=== PATIENT | female | born 1935 | race Caucasian/White ===

== ENCOUNTER → 2017-10-10 | Outpatient (CLI) | payer MEDICARE ==
[~2017-10-10] MED LIST: ACET-1966 PO; ALEN35TA3 PO; CARB-124 PO; DONE5TAB74 PO; IBUP200C71 PO; MEMA5TAB14 PO; METO25TA23 PO; OMEP-137 PO
== END ==
LOC: ZZSPRING 01:46
PROVIDERS: ATTEND Family Medicine
DX: F03.90 Unspecified dementia, unspecified severity, without behavioral disturbance, psychotic disturbance, mood disturbance, and anxiety (principal); I10 Essential (primary) hypertension; K21.9 Gastro-esophageal reflux disease without esophagitis; G20 Parkinson's disease; M81.0 Age-related osteoporosis without current pathological fracture; Z87.81 Personal history of (healed) traumatic fracture
CPT/HCPCS: 36415; 82040; 82247; 82306; 82310; 82374; 82435; 82565; 82607; 82947; 84075; 84132; 84155; 84295; 84443; 84450; 84460; 84520; 85027

== ENCOUNTER 2018-01-03 20:24 | Emergency (ER) | payer MEDICARE ==
[~2018-01-03 20:24] MED LIST changes: +CALC500T6 PO; +CHOL200021 PO; +IBUP-136 PO; -IBUP200C71 PO; +OMEP-125 PO
[2018-01-03] MEDS ORDERED: GUAI1CAP3 (20:56)
[2018-01-03] MEDS ORDERED: ASPI-757 PO (20:56)
--- NOTE | 2018-01-03 20:58 | ER Report ---
History and Physical Time Seen By MD: 20:20 Hx. of Stated Complaint: pt "needs disempacted" HPI/ROS Chief Complaint: "fecal impaction" HPI: 82-year-old patient presents to the Emergency Department with her daughter. The patient's daughter is the primary historian. The patient is currently living at [facility]. The patient's daughter reports she received a call from the [facility] nurse in which she was notified that the patient was constituted and the problem was "out of their scope." The patient does not report any pain at this time. The daughter reports that while out to dinner this evening the patient did have a decreased appetite. While changing the patient's depends the daughter noticed a smear of stool. The senior living has tried prune juice and Miralax with no improvement in constipation. ROS: Constitutional: denies fever, chills, or night sweats HEENT: denies headaches, changes in vision, sore throat or cough Respiratory: denies difficulty breathing GI: reports constipation, denies nausea and vomiting : denies changes in urination Allergies: Coded Allergies: Tgchzxv-Jwa-Wjk Reductase Inhibitor (Verified Allergy, Unknown, 10/05/17) Sulfa (Sulfonamide Antibiotics) (Verified Allergy, Unknown, 10/05/17) codeine (Verified Allergy, Unknown, 10/05/17) Home Meds Active Scripts Calcium Carbonate (CALCIUM) 500 Mg Tablet, 1 TAB PO BID for 90 Days, #180 TAB 4 Refills Prov:JAKE MARTIN MD 12/12/17 Cholecalciferol (Vitamin D3) (VITAMIN D) 2,000 Unit Capsule, 1 CAP PO DAILY for 90 Days, #90 CAPSULE 4 Refills Prov:JAKE MARTIN MD 12/12/17 Omeprazole (OMEPRAZOLE) 20 Mg Capsule.dr, 1 CAP PO QODAY for 90 Days, #45 CAP 4 Refills Prov:JAKE MARTIN MD 12/12/17 Carbidopa/Levodopa (CARBIDOPA-LEVO ER 25-100 TAB) 1 Each Tablet.er, 1 TAB PO TID for 90 Days, #270 TAB 4 Refills Prov:JAKE MARTIN MD 12/12/17 Reported Medications Guaifenesin/Dextromethorphan (Robitussin Vldcv-Sttrh-Rnpg Dm) 1 Each Capsule 01/03/18 Aspirin (ASPIRIN) 325 Mg Tablet, 325 MG PO QDAY, TAB 01/03/18 Acetaminophen (TYLENOL) 325 Mg Tablet, 1-2 TAB PO Q4H Y for PAIN, TAB 10/05/17 Alendronate Sodium (ALENDRONATE SODIUM) 35 Mg Tablet, 1 TAB PO QWEEK, TAB Weekly on Fridays10/05/17 Past Medical/Surgical History Alzheimer's Disease, Parkinson's Disease Social History of Lives at [facility] Hx Substance Use Disorder: No Hx Alcohol Use: No Constitutional Vital Sign - Last 24 Hours 01/03/18 01/03/18 01/03/18 01/03/18 20:24 20:30 20:31 20:54 Temp 97.9 Pulse ??? 91 ??? Resp 16 B/P (MAP) 158/87 (110) 158/87 Pulse Ox 93 O2 Delivery Room Air 01/03/18 01/03/18 01/03/18 01/03/18 21:00 21:24 21:30 21:39 Pulse 81 81 B/P (MAP) ???/??? (1665) 139/87 (104) Pulse Ox 89 94 01/03/18 01/03/18 01/03/18 01/03/18 21:54 22:00 22:09 22:15 Pulse ? B/P (MAP) ???/??? (1665) 169/90 (116) 01/03/18 01/03/18 01/03/18 01/03/18 22:20 22:30 22:35 22:50 Pulse 85 84 84 B/P (MAP) 147/88 (107) Pulse Ox 93 92 91 01/03/18 01/03/18 23:00 23:05 Pulse ??? B/P (MAP) 151/83 (105) Physical Exam Physical Examination: General: 82-year-old female in no acute distress, altered LOC HEENT: normocephalic, pupils round and reactive to light and accommodation, pharynx without erythema Respiratory: BL equal respiratory excursion, CTA BL CV: Clear S1 S2, no murmurs GI: hyperactive BS x 4, abdomen with distention, nontender, digital rectal exam consistent with fecal impaction Differential Diagnoses: constipation, fecal impaction Medical Decision Making EKG/Imaging Imaging KUB SINGLE VIEW ABDOMEN HISTORY: fecal impaction COMPARISON: None FINDINGS: Lower chest: Negative Abdomen: No free intraperitoneal air. There is a nonobstructive bowel gas pattern. There are no abnormal calcifications. Extensive thoracolumbar-sacral fusion hardware. Right hip arthroplasty. Mild degenerative changes at the left hip. Large amount of colonic stool. IMPRESSION: 1. Large amount of colonic stool. No obstructive features. Report Dictated By: Ivan Rich MD at 01/03/2018 11:01 PM Report E-Signed By: Ivan Rich MD at 01/03/2018 11:02 PM ED Course/Re-evaluation ED Course 82-year-old patient presents to the emergency department with her daughter after referral from [facility]. The patient is not experiencing pain however, the nurse at [facility] reported to the daughter that the patient's condition was out of their scope. History and physical examination were obtained. Differential diagnoses were considered and discussed with the patient and family. On digital rectal exam fecal impaction was evident. A moderate amount of stool was digitally removed and and enema was also administered. KUB indicates significant constipation. The patient will be sent back to [facility] for home care and encouraged to take Magnesium Citrate in the morning. The patient and family has been encouraged to continue MiraLax daily. The family has been encouraged to return to the emergency department if the patient's condition worsens. Decision to Disposition Date: Jan 03, 2018 Decision to Disposition Time: 22:56 Depart Departure Latest Vital Signs Vital Signs Date Time Temp Pulse Resp B/P (MAP) Pulse Ox O2 Delivery O2 Flow Rate FiO2 01/03/18 23:05 ??? 01/03/18 23:00 151/83 (105) 01/03/18 22:50 91 01/03/18 20:31 97.9 16 Room Air Impression: Primary Impression: Fecal impaction in rectum Condition: Improved Disposition: HOME OR SELF-CARE Referrals: JAKE MARTIN MD (PCP) Patient Instructions: Fecal Impaction (ED) Additional Instructions: Return to the emergency department if your condition worsens. Take magnesium sulfate in the morning and then continue taking MiraLax daily. Increase water intake and consider taking in more leafy green vegetables. Ensure regular toileting. Follow up with your primary care provider within the week to further discuss potential causes of the constipation. JAYY ALEMANP Jan 03, 2018 20:58
[2018-01-03] MEDS ORDERED: MAGNESIUM CITRATE 300 ML BTL PO ONE (22:55)
[2018-01-03 23:00] VITALS: BP 151/83
--- NOTE | 2018-01-03 23:07 | RADIOLOGY IMAGING REPORT ---
FACILITY: [facility] - [place], [place] PATIENT NAME: Altagracia Christensen : 1935 MR: [id number] V: [id number] EXAM DATE: ORDERING PHYSICIAN: JAYY ALEMAN TECHNOLOGIST: Location: [facility] Patient: Altagracia Christensen : 1935 Visit/Account:[id number] Date of Sevice: 01/03/2018 KUB SINGLE VIEW ABDOMEN HISTORY: fecal impaction COMPARISON: None FINDINGS: Lower chest: Negative Abdomen: No free intraperitoneal air. There is a nonobstructive bowel gas pattern. There are no abn ormal calcifications. Extensive thoracolumbar-sacral fusion hardware. Right hip arthroplasty. Mild de generative changes at the left hip. Large amount of colonic stool. IMPRESSION: 1. Large amount of colonic stool. No obstructive features. Report Dictated By: Ivan Rich MD at 01/03/2018 11:01 PM Report E-Signed By: Ivan Rich MD at 01/03/2018 11:02 PM WSN:[id number]
== END 2018-01-03 23:00 | disposition home or self-care (01) ==
LOC: ER 20:41
DX: K56.41 Fecal impaction (principal)
CPT/HCPCS: 74018; 99283; A9270

== ENCOUNTER → 2018-08-15 | Outpatient (CLI) | payer MEDICARE ==
[~2018-08-15] MED LIST changes: +ASPI-757 PO; +GUAI1CAP3 PO; +POLY17PO25 PO
--- NOTE | 2018-08-15 16:27 | RADIOLOGY IMAGING REPORT ---
FACILITY: [facility] - [place] PATIENT NAME: Altagracia Christensen : 1935 MR: [id number] V: [id number] EXAM DATE: ORDERING PHYSICIAN: JAKE MARTIN TECHNOLOGIST: Location: [facility] Patient: Altagracia Christensen : 1935 Visit/Account:[id number] Date of Sevice: 08/15/2018 EXAMINATION: Right Lower Extremity Venous Ultrasound HISTORY: Leg edema. TECHNIQUE: Ultrasound evaluation of the right lower extremity veins was performed with color and spe ctral Doppler and compression views. COMPARISON: None. FINDINGS: The right common femoral, femoral, proximal deep femoral, popliteal, and segmentally visualized deep calf veins are patent and compressible, without evidence of intraluminal thrombus. The visualized up per greater saphenous vein is patent. IMPRESSION: Normal exam. No evidence of DVT in the right leg. Report Dictated By: Heber Driscoll MD at 08/15/2018 4:08 PM Report E-Signed By: Heber Driscoll MD at 08/15/2018 4:10 PM WSN:[id number]
== END ==
LOC: US 14:53
PROVIDERS: ATTEND Family Medicine
DX: R60.0 Localized edema (principal)

== ENCOUNTER → 2018-08-28 | Outpatient (CLI) | payer MEDICARE ==
[~2018-08-28] MED LIST changes: +CALC1TAB24 PO; +DEXT1DRO16 OP; +LOPE2CAP15 PO; +MAG-65 PO; +MOM PO; +RANI-366 PO
== END ==
LOC: ZZSPRING 02:57
PROVIDERS: ATTEND Family Medicine
DX: R60.0 Localized edema (principal); I10 Essential (primary) hypertension
CPT/HCPCS: 36415; 82310; 82374; 82435; 82565; 82947; 84132; 84295; 84520; 85027

== ENCOUNTER 2018-12-07 03:51 | Inpatient (IN) | payer MEDICARE ==
[~2018-12-07] VITALS: Ht 165.1 cm; Wt 64.4 kg
[~2018-12-07 03:51] MED LIST changes: -POLY17PO25 ASDIRECTED
[2018-12-07] MEDS ORDERED: NS(*) 0.9% 1000 ML BAG 1,000 ML IV ONE (03:58)
[2018-12-07] MEDS ORDERED: fentaNYL CITR 100 MCG/2 ML AMP IVP ONE ×3 (04:00→04:15)
[2018-12-07] MEDS ORDERED: ONDANSETRON 4 MG/2 ML VIAL IVP ONE (04:00)
--- NOTE | 2018-12-07 04:04 | ER Report ---
History and Physical Time Seen By MD: 04:00 Hx. of Stated Complaint: fall, left hip pain HPI/ROS CHIEF COMPLAINT: Elderly fall, left hip pain HISTORY OF PRESENT ILLNESS: 83-year-old female from a dementia care [facility] after a fall. She's complaining of left hip and pelvis pain. Patient denies head injury, but she has dementia. Patient moaning in pain and discomfort. EMS placed a pelvic binder on her. See halfway paperwork for other specific details. There is a DO NOT RESUSCITATE. REVIEW OF SYSTEMS: Respiratory: No cough, no dyspnea. Cardiovascular: No chest pain, no palpitations. Gastrointestinal: No vomiting, no abdominal pain. Musculoskeletal: No back pain. Allergies: Coded Allergies: Zjgbcbc-Wex-Qmh Reductase Inhibitor (Verified Allergy, Unknown, 12/07/18) Sulfa (Sulfonamide Antibiotics) (Verified Allergy, Unknown, 12/07/18) codeine (Verified Allergy, Unknown, 12/07/18) Home Meds Active Scripts Folic Acid (FOLIC ACID) 1 Mg Tablet, 1 TAB PO QDAY for 90 Days, #90 TAB 1 Refill Prov:JAKE MARTIN MD 11/13/18 Cyanocobalamin (Vitamin B-12) (VITAMIN B-12) 1,000 Mcg Tablet, 1 TAB PO DAILY for 90 Days, #90 TAB 4 Refills Prov:JAKE MARTIN MD 11/13/18 Alendronate Sodium (ALENDRONATE SODIUM) 35 Mg Tablet, 1 TAB PO QWEEKF for 90 Days, #12 TAB 1 Refill Weekly on Fridays Prov:JAKE MARTIN MD 09/25/18 Ranitidine Hcl (ZANTAC) 150 Mg Tablet, 1 TAB PO HS for 90 Days, #90 TAB 1 Refill Prov:JAKE MARTIN MD 09/25/18 Calcium Carbonate (CALCIUM) 500 Mg Tablet, 1 TAB PO BID for 90 Days, #180 TAB 4 Refills Prov:JAKE MARTIN MD 12/12/17 Cholecalciferol (Vitamin D3) (VITAMIN D) 2,000 Unit Capsule, 1 CAP PO DAILY for 90 Days, #90 CAPSULE 4 Refills Prov:JAKE MARTIN MD 12/12/17 Carbidopa/Levodopa (CARBIDOPA-LEVO ER 25-100 TAB) 1 Each Tablet.er, 1 TAB PO TID for 90 Days, #270 TAB 4 Refills Prov:JAKE MARTIN MD 12/12/17 Reported Medications Melatonin/Pyridoxine (MELATONIN 5 MG TABLET) 1 Each Tablet, 1 TAB PO HS 12/07/18 Polyethylene Glycol 3350 (MIRALAX) 17 Gm Powd.pack, 1 PACK ASDIRECTED 3XW, PKT TAKES MON, WED AND FRI; HOLD FOR LOOSE STOOLS 12/07/18 Dextran 70/Hypromellose/Pf (ARTIFICIAL TEARS DROPS) 1 Each Droperette, 1 GTT OP PRN 08/22/18 Calcium Carbonate/Mag Hydrox (ANTACID CHEWABLE TABLET) 1 Each Tab.chew, 2 TAB.CHEW PO Q2H PRN for prn, TAB.CHEW 08/22/18 Mag Hydrox/Aluminum Hyd/Simeth (Maalox Advanced Suspension) 200 Mg-200 Mg-20 Mg/5 Ml Oral.susp, 15 ML PO Q4H PRN for prn 08/22/18 Acetaminophen (TYLENOL) 325 Mg Tablet, 1-2 TAB PO Q4H PRN for PAIN, TAB 10/05/17 Discontinued Reported Medications Magnesium Hydroxide (MILK OF MAGNESIA) 400 Mg/5 Ml Oral.susp, 15-30 ML PO BID PRN for CONSTIPATION, BOTTLE 08/22/18 Discontinued Scripts Melatonin/Pyridoxine (MELATONIN 5 MG TABLET) 1 Each Tablet, 1 TAB PO QHS, #90 TAB 4 Refills Prov:JAKE MARTIN MD 11/13/18 Polyethylene Glycol 3350 (MIRALAX) 17 Gm Powd.pack, 17 GM PO DAILY for 30 Days, #30 PKT 11 Refills Prov:JAKE MARTIN MD 01/09/18 Past Medical/Surgical History Past Medical History Reviewed: Yes Neurologic: Reports hx of: dementia parkinson's disease Gastrointestinal: Reports hx of: GERD peptic ulcer disease (with perforation) Musculoskeletal: Reports hx of: fractures (right hip) Musculoskeletal: Reports hx of: spinal surgery total joint replacement (right hip) Social history: Marital Status: Living Situation: assisted living (memory care) Household Members: alone Reviewed Nurses Notes: Yes Old Medical Records Reviewed: Yes Hx Substance Use Disorder: No Hx Alcohol Use: No Constitutional Vital Sign - Last 24 Hours 12/07/18 12/07/18 12/07/18 12/07/18 03:57 03:59 04:00 04:06 Pulse 107 109 Resp 16 B/P (MAP) 197/119 (145) 197/119 191/124 (146) Pulse Ox 94 96 O2 Delivery Room Air 12/07/18 12/07/18 12/07/18 12/07/18 04:21 04:30 04:36 04:50 Pulse 104 100 B/P (MAP) 193/110 (137) Pulse Ox 94 92 O2 Flow Rate 2.0 12/07/18 12/07/18 12/07/18 12/07/18 04:51 05:00 05:11 05:16 Pulse 93 97 96 B/P (MAP) 191/103 (132) Pulse Ox 97 95 93 Physical Exam Vital signs stable, afebrile, pulse ox normal General Appearance: The patient is alert, has no immediate need for airway pr otection and no current signs of toxicity. Moderate distress, dementia, palpation of the head and neck reveal no tenderness or trauma HEENT: Pupils equal and round no injection. Oropharynx without dental trauma Respiratory: Chest is non tender, lungs are clear to auscultation. No chest wall tenderness Cardiac: regular rate and rhythm Gastrointestinal: Abdomen is soft and non tender, no masses, bowel sounds normal. Musculoskeletal: Neck: Neck is supple and non tender. Extremities have full range of motion and are non tender. There is tenderness on compression of the left hip. Both lower extremities are neurovascularly intact. There is a lot of bruising noted on the left elbow, some old and some new Skin: No rashes or lesions. DIFFERENTIAL DIAGNOSIS: After history and physical exam differential diagnosis was considered for fall in the elderly including but not limited to intracranial injury, long bone and pelvic bone fracture, spinal injury, and intrathoracic injury. Medical Decision Making Data Points Result Diagram: 12/07/18 0351 12/07/18 0351 Laboratory Hematology Test 12/07/18 03:51 Red Blood Count 5.12 M/uL (4.17-5.56) Mean Corpuscular Volume 88.1 fL (80.0-96.0) Mean Corpuscular Hemoglobin 29.3 pg (26.0-33.0) Mean Corpuscular Hemoglobin Concent 33.3 g/dL (32.0-36.0) Red Cell Distribution Width 14.8 % (11.5-14.5) Mean Platelet Volume 11.4 fL (7.2-11.1) Neutrophils (%) (Auto) 64.4 % (39.4-72.5) Lymphocytes (%) (Auto) 23.2 % (17.6-49.6) Monocytes (%) (Auto) 11.4 % (4.1-12.4) Eosinophils (%) (Auto) 0.7 % (0.4-6.7) Basophils (%) (Auto) 0.3 % (0.3-1.4) Nucleated RBC Relative Count (auto) 0.0 /100WBC Neutrophils # (Auto) 4.4 K/uL (2.0-7.4) Lymphocytes # (Auto) 1.6 K/uL (1.3-3.6) Monocytes # (Auto) 0.8 K/uL (0.3-1.0) Eosinophils # (Auto) 0.0 K/uL (0.0-0.5) Basophils # (Auto) 0.0 K/uL (0.0-0.1) Nucleated RBC Absolute Count (auto) 0.00 K/uL Prothrombin Time 14.1 seconds (12.0-14.4) Prothromb Time International Ratio 1.08 Activated Partial Thromboplast Time 30 seconds (23-35) Sodium Level 140 mmol/L (137-145) Potassium Level 3.5 mmol/L (3.5-5.0) Chloride Level 105 mmol/L (98-107) Carbon Dioxide Level 25 mmol/L (22-31) Blood Urea Nitrogen 17 mg/dl (7-18) Creatinine 1.10 mg/dl (0.52-1.04) Glomerular Filtration Rate Calc 47.7 Random Glucose 125 mg/dl (75-110) Calcium Level 9.5 mg/dl (8.4-10.2) Total Bilirubin 0.9 mg/dl (0.2-1.3) Aspartate Amino Transf (AST/SGOT) 31 U/L (0-35) Alanine Aminotransferase (ALT/SGPT) 27 U/L (0-56) Alkaline Phosphatase 99 U/L (0-126) Total Protein 6.9 g/dl (6.3-8.2) Albumin 3.8 g/dl (3.5-5.0) Chemistry Test 12/07/18 03:51 White Blood Count 6.8 k/uL (4.5-11.0) Red Blood Count 5.12 M/uL (4.17-5.56) Hemoglobin 15.0 g/dL (12.0-16.0) Hematocrit 45.1 % (34.0-47.0) Mean Corpuscular Volume 88.1 fL (80.0-96.0) Mean Corpuscular Hemoglobin 29.3 pg (26.0-33.0) Mean Corpuscular Hemoglobin Concent 33.3 g/dL (32.0-36.0) Red Cell Distribution Width 14.8 % (11.5-14.5) Platelet Count 111 K/uL (150-450) Mean Platelet Volume 11.4 fL (7.2-11.1) Neutrophils (%) (Auto) 64.4 % (39.4-72.5) Lymphocytes (%) (Auto) 23.2 % (17.6-49.6) Monocytes (%) (Auto) 11.4 % (4.1-12.4) Eosinophils (%) (Auto) 0.7 % (0.4-6.7) Basophils (%) (Auto) 0.3 % (0.3-1.4) Nucleated RBC Relative Count (auto) 0.0 /100WBC Neutrophils # (Auto) 4.4 K/uL (2.0-7.4) Lymphocytes # (Auto) 1.6 K/uL (1.3-3.6) Monocytes # (Auto) 0.8 K/uL (0.3-1.0) Eosinophils # (Auto) 0.0 K/uL (0.0-0.5) Basophils # (Auto) 0.0 K/uL (0.0-0.1) Nucleated RBC Absolute Count (auto) 0.00 K/uL Prothrombin Time 14.1 seconds (12.0-14.4) Prothromb Time International Ratio 1.08 Activated Partial Thromboplast Time 30 seconds (23-35) Glomerular Filtration Rate Calc 47.7 Calcium Level 9.5 mg/dl (8.4-10.2) Total Bilirubin 0.9 mg/dl (0.2-1.3) Aspartate Amino Transf (AST/SGOT) 31 U/L (0-35) Alanine Aminotransferase (ALT/SGPT) 27 U/L (0-56) Alkaline Phosphatase 99 U/L (0-126) Total Protein 6.9 g/dl (6.3-8.2) Albumin 3.8 g/dl (3.5-5.0) Coagulation Test 12/07/18 03:51 Prothrombin Time 14.1 seconds Prothromb Time International Ratio 1.08 Activated Partial Thromboplast Time 30 seconds EKG/Imaging EKG Interpretation 12 lead EK, 22 Rhythm: Sinus tachycardia, rate 106 [place]: normal QRS: normal ST segments: normal, no evidence of ischemia or dysrhythmia, no old EKGs for comparison Imaging X-ray: Single view left hip was obtained. I viewed the images myself on the PACS system. My interpretation of the images is: Transcervical neck fracture of the left hip. The radiologist interpretation had no clinically significant variation from this interpretation. X-ray: Single view portable chest was obtained. I viewed the images myself on the PACS system. My interpretation of the images is: No infiltrate, no effusion, normal mediastinum. The radiologist interpretation had no clinically significant variation from this interpretation. ED Course/Re-evaluation Clinical Indication for ER IV: Hydration, IV Access ED Course 12/07/2018 5:01:[address] Monroy orthopedics surgery on-call, who accepts the patient for admission. 12/07/2018 5:16:[address] Bronson Moser-Toby hospitalist accepts the patient for admission for medical service. Decision to Disposition Date: Dec 07, 2018 Decision to Disposition Time: 04:21 Depart Departure Latest Vital Signs Vital Signs Date Time Temp Pulse Resp B/P (MAP) Pulse Ox O2 Delivery O2 Flow Rate FiO2 12/07/18 05:16 96 93 12/07/18 05:00 191/103 (132) 12/07/18 04:50 2.0 12/07/18 03:59 16 Room Air Impression: Primary Impression: Closed left hip fracture Additional Impressions: Fall in elderly patient Dementia Condition: Improved Disposition: Admitted from ER Referrals: JAKE MARTIN MD (PCP) Problem Qualifiers Primary Impression: Closed left hip fracture Encounter type: initial encounter Qualified Codes: S72.002A - Fracture of unspecified part of neck of left femur, initial encounter for closed fracture Additional Impressions: Dementia Dementia type: unspecified type Dementia behavioral disturbance: with behavioral disturbance Qualified Codes: F03.91 - Unspecified dementia with behavioral disturbance DHARA CHENG DO Dec 07, 2018 04:04
[2018-12-07 04:20] LABS: PLATELET COUNT, AUTOMATED 111 K/uL (150-450)
[2018-12-07 04:23] LABS: INR 1.08
--- NOTE | 2018-12-07 04:51 | EKG ---
FACILITY: [facility] PATIENT NAME: KENDELL PADILLA : [id number] MR: [id number] V: [id number] EXAM DATE: ORDERING PHYSICIAN: DHARA CHENG TECHNOLOGIST: ALE Grewal Reason : Blood Pressure : / mmHG Vent. Rate : 106 BPM Atrial Rate : 106 BPM P-R Int : 168 ms QRS Dur : 082 ms QT Int : 346 ms P-R-T Axes : 065 020 067 degrees QTc Int : 459 ms Sinus tachycardia Otherwise normal ECG No previous ECGs available Confirmed by Bronson Puente ([id number]) on 12/07/2018 6:12:48 AM Referred By: Confirmed By:Bronson Luis
--- NOTE | 2018-12-07 05:04 | RADIOLOGY IMAGING REPORT ---
FACILITY: [facility] - [place] PATIENT NAME: Altagracia Christensen : 1935 MR: [id number] V: [id number] EXAM DATE: ORDERING PHYSICIAN: DHARA CHENG TECHNOLOGIST: Location: Patient: Altagracia Christensen : 1935 Visit/Account:[id number] Date of Sevice: 12/07/2018 AP CHEST 12/07/2018 4:14 AM. INDICATION: Preoperative evaluation for left hip fracture. COMPARISON: None. FINDINGS: Lungs are well-expanded. There is no consolidation. No pleural effusion or pneumothorax. Heart size i s upper limit normal. Aortic calcifications. Incompletely imaged thoracolumbar fusion hardware. No displaced fracture. IMPRESSION: No acute abnormality. Report Dictated By: Liam Chacko MD at 12/07/2018 4:56 AM Report E-Signed By: Liam Chacko MD at 12/07/2018 4:58 AM WSN:[id number]
--- NOTE | 2018-12-07 05:05 | RADIOLOGY IMAGING REPORT ---
[place] [facility] [place] Altagracia Christensen : 1935 MR: [id number] V: [id number] EXAM DATE: [id number] ORDERING PHYSICIAN: DHARA CHENG TECHNOLOGIST: Location: [facility] [place] Patient: Altagracia Christensen : 1935 Visit/Account:[id number] Date of Sevice: 12/07/2018 INDICATION: fall EXAM DATE: 12/07/2018 3:58 AM COMPARISON: KUB radiograph 01/03/2018. FINDINGS: AP view of the left hip. Mineralization is low. No acute alignment abnormality or fracture. There is a transcervical fracture of the left femoral neck. The distal fragment is approximately displaced. No additional fracture or dislocation. Incompletely imaged spinal fusion hardware and right hip pro sthesis. Soft tissues are unremarkable. IMPRESSION: Displaced transcervical fracture of the left femur in the setting of low bone mineraliza tion. Report Dictated By: Liam Chacko MD at 12/07/2018 4:58 AM Report E-Signed By: Liam Chacko MD at 12/07/2018 5:00 AM WSN:[id number]
[2018-12-07] MEDS ORDERED: ACETAMINOPHEN 325 MG TAB PO PRN (05:45)
[2018-12-07] MEDS ORDERED: FLUSH 10 ML SYR IVP PRN (05:45)
[2018-12-07 06:01] VITALS: BP 182/96
[2018-12-07] MEDS ORDERED: LABETALOL HCL 100 MG/20ML VIAL IVP PRN (06:05)
--- NOTE | 2018-12-07 06:05 | History & Physical ---
History of Present Illness Chief Complaint fall History of Present Illness 83F presented after fall. PMHx significant for Parkinson's dementia, Hx R hip Fx, osteoporosis. Lives in memory care unit at [facility]. Fell and was brought in. In ER found to have L hip Fx, discussed with Dr Monroy who recommends hospitalization with surgical repair. Admitted to medicine service due to age and comorbidities. Reportedly oriented to person only at baseline. Due to combination of dementia and fentanyl analgesic she is non verbal and does not interact on PE. She does move spontaneously and appeared startled at one point by voice and presence. History Unable To Obtain Past Medical: Unable to Obtain/Update Problems: (1) Hx of fracture of hip (2) Dementia (3) Osteoporosis (4) History of fecal impaction (5) GERD (gastroesophageal reflux disease) Home Meds Active Scripts Melatonin/Pyridoxine (MELATONIN 5 MG TABLET) 1 Each Tablet, 1 TAB PO QHS, #90 TAB 4 Refills Prov:JAKE MARTIN MD 11/13/18 Folic Acid (FOLIC ACID) 1 Mg Tablet, 1 TAB PO QDAY for 90 Days, #90 TAB 1 Refill Prov:JAKE MARTIN MD 11/13/18 Cyanocobalamin (Vitamin B-12) (VITAMIN B-12) 1,000 Mcg Tablet, 1 TAB PO DAILY for 90 Days, #90 TAB 4 Refills Prov:JAKE MARTIN MD 11/13/18 Alendronate Sodium (ALENDRONATE SODIUM) 35 Mg Tablet, 1 TAB PO QWEEKF for 90 Days, #12 TAB 1 Refill Weekly on Fridays Prov:JAKE MARTIN MD 09/25/18 Ranitidine Hcl (ZANTAC) 150 Mg Tablet, 1 TAB PO HS for 90 Days, #90 TAB 1 Refill Prov:JAKE MARTIN MD 09/25/18 Polyethylene Glycol 3350 (MIRALAX) 17 Gm Powd.pack, 17 GM PO DAILY for 30 Days, #30 PKT 11 Refills Prov:JAKE MARTIN MD 01/09/18 Calcium Carbonate (CALCIUM) 500 Mg Tablet, 1 TAB PO BID for 90 Days, #180 TAB 4 Refills Prov:JAKE MARTIN MD 12/12/17 Cholecalciferol (Vitamin D3) (VITAMIN D) 2,000 Unit Capsule, 1 CAP PO DAILY for 90 Days, #90 CAPSULE 4 Refills Prov:JAKE MARTIN MD 12/12/17 Carbidopa/Levodopa (CARBIDOPA-LEVO ER 25-100 TAB) 1 Each Tablet.er, 1 TAB PO TID for 90 Days, #270 TAB 4 Refills Prov:JAKE MARTIN MD 12/12/17 Reported Medications Dextran 70/Hypromellose/Pf (ARTIFICIAL TEARS DROPS) 1 Each Droperette, 1 GTT OP PRN 08/22/18 Calcium Carbonate/Mag Hydrox (ANTACID CHEWABLE TABLET) 1 Each Tab.chew, 2 TAB.CHEW PO Q2H PRN for prn, TAB.CHEW 08/22/18 Magnesium Hydroxide (MILK OF MAGNESIA) 400 Mg/5 Ml Oral.susp, 15-30 ML PO BID PRN for CONSTIPATION, BOTTLE 08/22/18 Mag Hydrox/Aluminum Hyd/Simeth (Maalox Advanced Suspension) 200 Mg-200 Mg-20 Mg/5 Ml Oral.susp, 15 ML PO Q4H PRN for prn 08/22/18 Acetaminophen (TYLENOL) 325 Mg Tablet, 1-2 TAB PO Q4H PRN for PAIN, TAB 10/05/17 Allergies: Coded Allergies: Dqzewow-Nmb-Vue Reductase Inhibitor (Verified Allergy, Unknown, 12/07/18) Sulfa (Sulfonamide Antibiotics) (Verified Allergy, Unknown, 12/07/18) codeine (Verified Allergy, Unknown, 12/07/18) Hx Alcohol Use: No Review of Systems Other unable to obtain 2/2 mental status Exam Vital Signs Vital Signs Date Time Temp Pulse Resp B/P (MAP) Pulse Ox O2 Delivery O2 Flow Rate FiO2 12/07/18 05:30 197/117 (143) 12/07/18 05:16 96 93 12/07/18 04:50 2.0 12/07/18 03:59 16 Room Air General Appearance: Awake, Afebrile Cardiovascular: Normal Rhythm & Peripheral Pulses Respiratory: No Respiratory Distress GI: Abd Soft and Non-Tender Extremities: Soft and Non Tender, Warm, Pulses, Perfused Medical Decision Making Data Points Result Diagram: 12/07/1835012/07/18350 EKG / Imaging EKG Interpretation sinus tachycardia Assessment and Plan Problems: (1) Closed left hip fracture Status: Acute Assessment & Plan: L transcervical hip fracture. Planned surgical repair with Dr Monroy, no heart history other than hypertension, EKG WNL, no findings on chest xray which would raise concern. Physically appears to be low risk for surgery. Dementia may interfere in post operative recovery.. NPO other than medications. IV Dilaudid for pain. (2) HTN (hypertension) Assessment & Plan: No medications at baseline, reportedly 130's typically. Will use PRN labetalol as she is having hypertension possibly due to pain. (3) Parkinson disease Assessment & Plan: On carbo/levodopa, will continue perioperatively. (4) Dementia Assessment & Plan: Severe, reportedly only oriented to self at baseline. (5) GERD (gastroesophageal reflux disease) Assessment & Plan: Continue chronic ranitidine. Venous Thromboembolism Antithrombotics Is Pt On Any Antithrombotics?: No Prophylaxis Tx Contraindicated Pharmacological Contraindicati: Surgical Contraindication Exam Sepsis Risk: No Definite Risk Problem Qualifiers (1) Closed left hip fracture: Encounter type: initial encounter Qualified Codes: S72.002A - Fracture of unspecified part of neck of left femur, initial encounter for closed fracture CATALINA FUNEZ DO Dec 07, 2018 06:05
[2018-12-07 07:26] VITALS: BP 170/105
[2018-12-07 08:26] VITALS: BP 164/86
[2018-12-07] MEDS: RANITIDINE HCL 150 MG TAB PO SCH ×2 (09:00→09:44)
[2018-12-07] MEDS: CARBIDOPA/LEVODOPA 25/100 TAB PO SCH ×2 (09:45→14:00)
[2018-12-07] MEDS: HYDROmorphone HCL 2 MG/ML SDV IVP PRN ×3 (10:01→18:39)
[2018-12-07] MEDS: NS(*) 0.9% 1000 ML BAG 1,000 ML IV PRN ×2 (11:30→22:19)
[2018-12-07 11:31] VITALS: BP 132/72
[2018-12-07] MEDS ORDERED: MELA1TAB15 PO (11:58)
[2018-12-07] MEDS ORDERED: POLY17PO25 ASDIRECTED (11:58)
--- NOTE | 2018-12-07 12:59 | Medical Nutrition Therapy ---
Nutrition Anthropometrics Height (Inches): 65.00 Height (Calculated Centimeters: [phone] Weight (Pounds): 142 Weight (Calculated Kilograms): 64.637 BMI: 23.7 Brooks Nutrition Score: Adequate Brooks Nutrition Risk Score: 15 Dietary Referral Nutrition Risk Factors: Nutrition Risk Comment: Physical Findings Physical Appearance: Within normal BMI range, since >70 years would like to see her BMI between 25-32 Skin Appearance Skin Appearance: Edema Edema Location Modifier: Edema Location: RLE (chronic according to nurse at [facility]) Type of Edema: Degree of Edema: Gastrointestinal Symptoms GI Symtoms: Tube Present: Bowel Sounds: Recent Bowel Pattern: Stool Characteristics: Nutrition/Food History Good (Has been eating well per RN at [facility]) Snacks: Likes Snickers Bars Nutritional Diagnosis Nutritional Risk Acuity 3: OR & > 80 yrs, Fx & > 80 yrs Past Medical History: Parkinson's Disease, Severe Dementia, HTN, Only Oriented to Self Nutritional Acuity: 3-Mild Energy Requirement: 1668 (MSJ x AF1.5 (Promote healing of hip fx)) Protein Requirement: 77 (1.2g/kg) Fluid Requirement: 1668 (1mL/kcal) Diet Type: NPO (Nothing by Mouth) Nutrition Intervention: Incr diet as tolerated Diet Comment To RSA: When diets advances please cut up food. Pt has a difficult time cutting up her own food. Nutrition Monitoring & Eval Nutrition Goals: Eat 90-100% Meal Nutrition Monitoring: Monitor weight, intakes. RD Patient Assessment Time: [address] Assessment Type: RD Assessment Patient Nutrition Acuity: 3-Mild Follow Up Date: Dec 12, 2018 Nutritional Comment: 12/07/18-Spoke with pt Mickey about increased energy needs following hip fx repair. Spoke with RN at [facility]. Pt has been eating well there. Was not taking any oral nutrition supplements such as Boost or Ensure. They do cut up her food for her as she has trouble cutting it up herself. Her weight last month 11/06/18 was 138.5 lbs. In 2018, her lowest weight was 113 lbs. Her weight on 12/07/18 is 142 lbs. She does have some chronic LE edema per RN at [facility]. Pt appears to be doing fairly well from a nutritional standpoint. She will have increased energy and protein needs following surgery. Will continue to monitor pt weight and intake while here, with goal of healing/strengthening and weight maitenance.JOSEPH LANGE Dec 07, 2018 12:40
--- NOTE | 2018-12-07 13:46 | NUR ---
Called OR, talked with Teddy Martin re: taking pt to OR today. He states Dr Monroy wants pelvis, AP/lat hip. Orders enter into computer
--- NOTE | 2018-12-07 15:10 | RADIOLOGY IMAGING REPORT ---
FACILITY: [facility] [place] PATIENT NAME: Altagracia Christensen : 1935 MR: [id number] V: [id number] EXAM DATE: ORDERING PHYSICIAN: MARIANGEL WAGGONER TECHNOLOGIST: Location: [facility] [place] Patient: Altagracia Christensen : 1935 Visit/Account:[id number] Date of Sevice: 12/07/2018 HIP LEFT HISTORY: Hip fractures/fall at home ADDITIONAL HISTORY: None. COMPARISON: 12/07/2018 0357 hours FINDINGS: AP view the pelvis and coned-down AP and crosstable lateral views of the left hip were obtained at 13 41 hours. There is a subcapital fracture of the left hip with superior subluxation of the distal fracture fragm ents. Degree of superior subluxation is increased slightly compared to previous. There is varus ang ulation, unchanged. Pelvic ring is intact. Right hip prosthesis is in place in anatomic alignment. Extensive postsurgical changes present in the lumbosacral spine. IMPRESSION: 1. Subcapital fracture of the left hip with varus angulation and superior displacement of the distal fragments. Degree of superior subluxation appears slightly increased when compared to the prior mila dy. 2. Right hip prosthesis with anatomic alignment of the components. 4. No fracture identified of the pelvis. Report Dictated By: Deb Hines MD at 12/07/2018 3:01 PM Report E-Signed By: Deb Hines MD at 12/07/2018 3:04 PM WSN:[email or web address]
--- NOTE | 2018-12-07 16:31 | Miscellaneous Provider Note ---
Miscellaneous Provider Note Note After discussions with family and Dr. Piedra (Mrs. Christensen's primary care provider), they have now decided to pursue only comfort measures and do not want to have any aggressive/surgical interventions. This certainly seems reasonable given her advanced Parkinson's disease/dementia. Will now transition to comfort measures. Family will be meeting with Hospice as well. GERMÁN BUTCHER MD Dec 07, 2018 16:31
[2018-12-07 18:42] VITALS: BP 140/90
[2018-12-07] MEDS ORDERED: MELATONIN 3 MG TAB PO SCH (21:00)
[2018-12-08] MEDS: HYDROmorphone HCL 2 MG/ML SDV IVP PRN ×2 (06:16→14:03)
[2018-12-08 07:11] VITALS: BP 111/58
[2018-12-08] MEDS: NS(*) 0.9% 1000 ML BAG 1,000 ML IV PRN (08:12)
[2018-12-08] MEDS: CARBIDOPA/LEVODOPA 25/100 TAB PO SCH ×2 (09:00→14:00)
[2018-12-08] MEDS: PANTOPRAZOLE SOD 40 MG IV VIAL IVP SCH (09:53)
[2018-12-08] MEDS: KETOROLAC 15 MG/ML VIAL IVP SCH ×3 (09:54→20:29)
[2018-12-08] MEDS: ACETAMINOPHEN(*)1000 MG/100 ML 100 ML IVPB SCH ×3 (12:08→20:30)
--- NOTE | 2018-12-08 16:27 | Hospitalist Progress Note ---
Subjective Progress Notes Subjective CANDY overnight, family planning transition to comfort care and hospice. Physical Exam Vital Signs Date Time Temp Pulse Resp B/P (MAP) Pulse Ox O2 Delivery O2 Flow Rate FiO2 12/08/18 10:05 90 Nasal Cannula 3.0 12/08/18 07:11 100.1 70 14 111/58 (75) Intake and Output 12/08/18 07:01 Intake Total 1025 ml Output Total 1200 ml Balance -175 ml Intake Oral 25 ml IV Total 1000 ml Output Urine Total 1200 ml General Appearance: No Acute Distress, Afebrile Cardiovascular: Normal Rhythm & Peripheral Pulses Respiratory: No Respiratory Distress Result Diagram: 12/07/1835012/07/18350 Assessment and Plan Problems: (1) Closed left hip fracture Status: Acute Assessment & Plan: L transcervical hip fracture.Tylenol, Toradol, Dilaudid for pain. No surgical repair planned as will focus on comfort. (2) HTN (hypertension) Assessment & Plan: No medications at baseline, reportedly 130's typically. Will use PRN labetalol as she is having hypertension possibly due to pain. (3) Parkinson disease Assessment & Plan: On carbo/levodopa, will continue perioperatively. (4) Dementia Assessment & Plan: Severe. (5) GERD (gastroesophageal reflux disease) Assessment & Plan: On PPI until transition to comfort. Exam Sepsis Risk: No Definite Risk Problem Qualifiers (1) Closed left hip fracture: Encounter type: initial encounter Qualified Codes: S72.002A - Fracture of unspecified part of neck of left femur, initial encounter for closed fracture CATALINA FUNEZ DO Dec 08, 2018 16:27
[2018-12-08] MEDS ORDERED: ONDANSETRON 4 MG/2 ML VIAL IVP PRN (18:10)
[2018-12-08] MEDS ORDERED: SCOPOLAMINE 1.5 MG PATCH TD PRN (18:30)
[2018-12-08] MEDS: ARTIFICIAL TEARS OINT 3.5 GM OU SCH (20:30)
[2018-12-08] MEDS: LORazepam 2 MG/ML VIAL IV PRN (20:34)
[2018-12-09] MEDS: ARTIFICIAL TEARS OINT 3.5 GM OU SCH ×5 (01:00→17:08)
[2018-12-09] MEDS: MORPHINE 2 MG/ML SYR IV PRN ×4 (01:48→19:37)
[2018-12-09] MEDS: KETOROLAC 15 MG/ML VIAL IVP SCH (03:42)
[2018-12-09] MEDS: ACETAMINOPHEN(*)1000 MG/100 ML 100 ML IVPB SCH ×3 (04:18→16:36)
[2018-12-09] MEDS: LORazepam 2 MG/ML VIAL IV PRN ×3 (08:28→16:35)
[2018-12-09] MEDS: PANTOPRAZOLE SOD 40 MG IV VIAL IVP SCH (09:20)
--- NOTE | 2018-12-09 09:23 | Hospitalist Progress Note ---
Subjective Progress Notes Subjective Per nursing the patient was able to talk to them earlier this am. Physical Exam Vital Signs Date Time Temp Pulse Resp B/P (MAP) Pulse Ox O2 Delivery O2 Flow Rate FiO2 12/09/18 07:20 81 Room Air 12/08/18 20:00 3.0 12/08/18 07:11 100.1 70 14 111/58 (75) Intake and Output 12/09/18 07:01 Intake Total 985 ml Output Total 275 ml Balance 710 ml Intake Oral 0 ml IV Total 985 ml Output Urine Total 275 ml # Voids 0 # Bowel Movements 0 General Appearance: Other (Somnolent. Does not respond to questions. Appears comfortable.) Cardiovascular: Regular Rate and Rhythm Respiratory: Clear to Auscultation (Anteriorly.) Extremities: Warm, Perfused Result Diagram: 12/07/1835012/07/18350 Assessment and Plan Problems: (1) End of life care Status: Acute Assessment & Plan: The patient has severe dementia and Parkinson's disease. She had previous fx of R hip and now L hip. The patient's family has elected to transition her to comfort care. She has Tylenol, morphine and Ativan ordered. Her oxygen has been stopped. (2) Closed left hip fracture Status: Acute Assessment & Plan: L subcapital hip fracture. The patient's family has decided to transition to comfort care. Tylenol and morphine have been ordered for pain. No surgical repair planned. (3) HTN (hypertension) Assessment & Plan: No medications at baseline, reportedly 130's typically. Medications stopped. Focus on comfort. (4) Parkinson disease Assessment & Plan: Medications stopped. Focus on comfort. (5) Dementia Assessment & Plan: Severe. (6) GERD (gastroesophageal reflux disease) Assessment & Plan: Medications stopped. Focus on comfort. Time Spent on Plan of Care: < 30 min Exam Sepsis Risk: No Definite Risk Problem Qualifiers (1) Closed left hip fracture: Encounter type: initial encounter Qualified Codes: S72.002A - Fracture of unspecified part of neck of left femur, initial encounter for closed fracture PRAFUL BUTCHER MD Dec 09, 2018 09:23
[2018-12-10] VITALS: BP 143/87
[2018-12-10] MEDS: ARTIFICIAL TEARS OINT 3.5 GM OU SCH ×6 (00:27→21:13)
[2018-12-10] MEDS: LORazepam 2 MG/ML VIAL IV PRN ×3 (02:03→15:20)
[2018-12-10] MEDS: MORPHINE 2 MG/ML SYR IV PRN ×2 (02:17→08:12)
[2018-12-10] MEDS: ACETAMINOPHEN(*)1000 MG/100 ML 100 ML IVPB SCH ×5 (04:42→21:20)
[2018-12-10] MEDS: NS(*) 0.9% 1000 ML BAG 1,000 ML IV PRN (07:52)
[2018-12-10] MEDS ORDERED: MORPHINE 50 MG/50 ML PCA BAG IV PRN (08:50)
[2018-12-10] MEDS ORDERED: NALOXONE HCL 0.4 MG/ML VIAL IVP PRN (08:55)
[2018-12-10] MEDS ORDERED: PCA LOCKBOX KEYS XX ONE (08:58)
--- NOTE | 2018-12-10 10:15 | Hospitalist Progress Note ---
Subjective Progress Notes Subjective Per nursing staff she has not awaken since yesterday. Physical Exam Vital Signs Date Time Temp Pulse Resp B/P (MAP) Pulse Ox O2 Delivery O2 Flow Rate FiO2 12/10/18 09:12 12 12/10/18 07:56 74 Room Air 12/10/18 07:54 80 12/10/18 00:00 97.7 143/87 (105) 12/08/18 20:00 3.0 Intake and Output 12/10/18 01:01 Intake Total 0 ml Output Total 50 ml Balance -50 ml Intake Oral 0 ml Output Urine Total 50 ml General Appearance: Other (somnolent, does not awaken ) Cardiovascular: Regular Rate and Rhythm Respiratory: Other (right lung appears diminished, left lung clear to auscultation ) Extremities: Warm, Perfused, Edema Result Diagram: 12/07/18 03512/07/18 035 Assessment and Plan Problems: (1) End of life care Status: Acute Assessment & Plan: The patient has severe dementia and Parkinson's disease. She had previous fx of R hip and now L hip. The patient's family has elected to transition her to comfort care. She has Tylenol, morphine and Ativan ordered. Her oxygen has been stopped. Will start Morphine CLINIC SCHEDULER continuous infusion today. (2) Closed left hip fracture Status: Acute Assessment & Plan: L subcapital hip fracture. The patient's family has decided to transition to comfort care. Tylenol and morphine have been ordered for pain. No surgical repair planned. (3) HTN (hypertension) Assessment & Plan: No medications at baseline, reportedly 130's typically. Medications stopped. Focus on comfort. (4) Parkinson disease Assessment & Plan: Medications stopped. Focus on comfort. (5) Dementia Assessment & Plan: Severe. (6) GERD (gastroesophageal reflux disease) Assessment & Plan: Medications stopped. Focus on comfort. Exam Sepsis Risk: No Definite Risk Problem Qualifiers (1) Closed left hip fracture: Encounter type: initial encounter Qualified Codes: S72.002A - Fracture of unspecified part of neck of left femur, initial encounter for closed fracture GILLIAN BISHOP BOX CAR WASHER Dec 10, 2018 10:15
[2018-12-10] MEDS ORDERED: PCA LOCKBOX KEYS XX PRN (15:15)
[2018-12-10 20:01] VITALS: BP 165/88
[2018-12-11] MEDS: ARTIFICIAL TEARS OINT 3.5 GM OU SCH ×3 (00:39→08:20)
[2018-12-11] MEDS: ACETAMINOPHEN(*)1000 MG/100 ML 100 ML IVPB SCH (03:28)
[2018-12-11] MEDS: NS(*) 0.9% 1000 ML BAG 1,000 ML IV PRN (03:36)
[2018-12-11] MEDS: LORazepam 2 MG/ML VIAL IV PRN (08:13)
--- NOTE | 2018-12-11 11:57 | Transfer Summary (ECF/SWB) ---
Transfer Summary (ECF/SWB) Problems: (1) End of life care Status: Acute Assessment & Plan: The patient has severe dementia and Parkinson's disease. She had previous fx of R hip and now L hip. The patient's family has elected to transition her to comfort care. She has Tylenol, morphine and Ativan ordered. Her oxygen has been stopped. She was started on Morphine INTEGRATION ARCHITECT continuous infusion. She will be transferred to [facility] for continued care. (2) Closed left hip fracture Status: Acute Assessment & Plan: L subcapital hip fracture. The patient's family has decided to transition to comfort care. Tylenol and morphine have been ordered for pain. No surgical repair planned. (3) HTN (hypertension) Assessment & Plan: No medications at baseline, reportedly 130's typically. Medications stopped. Focus on comfort. (4) Parkinson disease Assessment & Plan: Medications stopped. Focus on comfort. (5) Dementia Assessment & Plan: Severe. (6) GERD (gastroesophageal reflux disease) Assessment & Plan: Medications stopped. Focus on comfort. Latest Vital Signs Vital Signs Date Time Temp Pulse Resp B/P (MAP) Pulse Ox O2 Delivery O2 Flow Rate FiO2 12/11/18 10:40 27 82 12/11/18 09:53 Room Air 12/10/18 21:35 98.7 12/10/18 20:01 97 165/88 (113) Result Diagram: 12/07/18 0351 12/07/18 0351 Condition: No Change Disposition: SNF/NH Treatment Goals and Plan Patient requires halfway for End of Life Care/Comfort Care and is ready for admission to Extended Care. Any change in condition is described below. Services Required: IV Medications Copies To 1: JAKE MARTIN MD ; Problem Qualifiers (1) Closed left hip fracture: Encounter type: initial encounter Qualified Codes: S72.002A - Fracture of unspecified part of neck of left femur, initial encounter for closed fracture GILLIAN BISHOP [employer] REPRESENTATIVE Dec 11, 2018 11:57
[2018-12-11] MEDS ORDERED: PATCH REMOVAL 1 EA TP PRN (18:30)
== END 2018-12-11 10:55 | DRG 536 ==
LOC: ER 04:27 → MED 05:29
PROVIDERS: ADMIT Internal Medicine; ATTEND Internal Medicine
DX: S72.032A Displaced midcervical fracture of left femur, initial encounter for closed fracture (principal); F02.81 Dementia in other diseases classified elsewhere, unspecified severity, with behavioral disturbance; G20 Parkinson's disease; K21.9 Gastro-esophageal reflux disease without esophagitis; I10 Essential (primary) hypertension; Z51.5 Encounter for palliative care; M81.0 Age-related osteoporosis without current pathological fracture; Z88.5 Allergy status to narcotic agent; Z96.641 Presence of right artificial hip joint; Z88.2 Allergy status to sulfonamides; Z88.8 Allergy status to other drugs, medicaments and biological substances; Z79.899 Other long term (current) drug therapy; Z66 Do not resuscitate; W19.XXXA Unspecified fall, initial encounter; Y92.099 Unspecified place in other non-institutional residence as the place of occurrence of the external cause
CPT/HCPCS: 71045; 82040; 82247; 82310; 82374; 82435; 82565; 82947; 84075; 84132; 84155; 84295; 84450; 84460; 84520; 85025; 85610; 85730; 93005; 96374; 96375; 99284; C9113; J0131; J1170; J1885; J2060; J2270; J2405; J3010; J7030

== ENCOUNTER → 2018-12-07 | Outpatient (CLI) | payer MEDICARE ==
[~2018-12-07] MED LIST changes: +CYA1000 PO; +FOLI-68 PO; +MELA1TAB15 PO; -OMEP-125 PO; +OMEP-126 PO; +POLY17PO25 ASDIRECTED; -RANI-366 PO; +RANI-54 PO
== END ==
LOC: AMB 03:29
PROVIDERS: ATTEND Nurse Practitioner
DX: M25.552 Pain in left hip (principal); W06.XXXA Fall from bed, initial encounter
CPT/HCPCS: A0425; A0429

== ENCOUNTER 2018-12-11 09:51 | Inpatient (IN) | payer MEDICARE ==
[~2018-12-11 09:51] MED LIST changes: +POLY17PO25 ASDIRECTED
[2018-12-11] MEDS ORDERED: LORazepam 2 MG/ML VIAL IV PRN (11:06)
[2018-12-11] MEDS ORDERED: MORPHINE 50 MG/50 ML PCA BAG IV PRN (11:06)
[2018-12-11] MEDS ORDERED: FLUSH 10 ML SYR IVP PRN (11:06)
[2018-12-11] MEDS ORDERED: ONDANSETRON 4 MG/2 ML VIAL IVP PRN (11:06)
[2018-12-11] MEDS ORDERED: PCA LOCKBOX KEYS XX PRN (11:06)
[2018-12-11] MEDS ORDERED: MORPHINE 2 MG/ML SYR IV PRN (11:06)
[2018-12-11] MEDS ORDERED: NS(*) 0.9% 1000 ML BAG 1,000 ML IV PRN (11:06)
[2018-12-11 11:20] VITALS: BP 116/67
[2018-12-11] MEDS: ARTIFICIAL TEARS OINT 3.5 GM OU SCH ×3 (13:00→21:00)
--- NOTE | 2018-12-11 14:00 | Consultant Pharmacy Review ---
Log Chipper Review Comments Regarding the Review Patient on end of life care. Pain control with Morphine MEDICINE TECHNOLOGIST (basal rate) CAYDEN ESTRADA V Dec 11, 2018 14:00
[2018-12-11] MEDS: ACETAMINOPHEN(*)1000 MG/100 ML 100 ML IVPB SCH ×2 (16:00→21:36)
[2018-12-11] MEDS ORDERED: SCOPOLAMINE 1.5 MG PATCH TD PRN (17:00)
--- NOTE | 2018-12-12 06:38 | Death Summary ---
Pronounced Date: Dec 11, 2018 Pronounced Time: 2219 Preliminary Cause of : Parkinson's Dementia Assessment: Acute hypoxic respiratory failure Malnutrition Hip Fracture History of Present Illness Please see admission history and physical for details. Hospital Course Patient was admitted after fall for hip fracture in anticipation of repair. Further evaluation demonstrated a woman with Parkinson's disease and severe dementia. Family reported she had been primarily staying in bed, sleeping, not eating or drinking and no longer recognized family or interacted with people for some time before admission occurred. Hospice care was being considered even before the recent hip fracture. Patient did demonstrate this same behavior during hospitalization and her oxygen needs continued to slowly increase. Family elected to pursue comfort care and requested O2 be removed. She was transferred to [facility] for end of life care where she December 11 at 2220. Copies to: JAKE MARTIN MD ; Medical Records to be sent: Summary CATALINA FUNEZ DO Dec 12, 2018 06:38
--- NOTE | 2018-12-12 14:38 | ECF History & Physical ---
Transfer Summary (ECF/SWB) Problems: (1) End of life care Status: Acute Assessment & Plan: The patient has severe dementia and Parkinson's disease. She had previous fx of R hip and now L hip. The patient's family has elected to transition her to comfort care. She has Tylenol, morphine and Ativan ordered. Her oxygen has been stopped. She was started on Morphine MARKETING OPERATIONS INTERN continuous infusion. She will be transferred to [facility] for continued care. (2) Closed left hip fracture Status: Acute Assessment & Plan: L subcapital hip fracture. The patient's family has decided to transition to comfort care. Tylenol and morphine have been ordered for pain. No surgical repair planned. (3) HTN (hypertension) Assessment & Plan: No medications at baseline, reportedly 130's typically. Medications stopped. Focus on comfort. (4) Parkinson disease Assessment & Plan: Medications stopped. Focus on comfort. (5) Dementia Assessment & Plan: Severe. (6) GERD (gastroesophageal reflux disease) Assessment & Plan: Medications stopped. Focus on comfort. Latest Vital Signs Vital Signs Date Time Temp Pulse Resp B/P (MAP) Pulse Ox O2 Delivery O2 Flow Rate FiO2 12/11/18 10:40 27 82 12/11/18 09:53 Room Air 12/10/18 21:35 98.7 12/10/18 20:01 97 165/88 (113) Result Diagram: 12/07/18 0351 12/07/18 0351 Condition: No Change Disposition: SNF/NH Treatment Goals and Plan Patient requires senior care for End of Life Care/Comfort Care and is ready for admission to Extended Care. Any change in condition is described below. Services Required: IV Medications Copies To 1: JAKE MARTIN MD ; Problem Qualifiers (1) Closed left hip fracture: Encounter type: initial encounter Qualified Codes: S72.002A - Fracture of unspecified part of neck of left femur, initial encounter for closed fracture GILLIAN BISHOP Dec 11, 2018 11:57 <Electronically signed by MURTAZA MARTIN> D/ [id number] MICAH/INEZ CC: JAKE MARTIN MD [facility]
[2018-12-14] MEDS ORDERED: PATCH REMOVAL 1 EA TP PRN (17:00)
== END 2018-12-11 22:20 | disposition expired | DRG 951 ==
LOC: ECF 10:55
PROVIDERS: ADMIT Internal Medicine; ATTEND Internal Medicine
DX: Z51.5 Encounter for palliative care (principal); S72.032A Displaced midcervical fracture of left femur, initial encounter for closed fracture; J96.01 Acute respiratory failure with hypoxia; E46 Unspecified protein-calorie malnutrition; G20 Parkinson's disease; F02.80 Dementia in other diseases classified elsewhere, unspecified severity, without behavioral disturbance, psychotic disturbance, mood disturbance, and anxiety; W19.XXXA Unspecified fall, initial encounter
CPT/HCPCS: J0131; J2060